=== PATIENT | female | born 1935 | race Caucasian/White ===

== ENCOUNTER 2016-07-21 10:56 | Observation (INO) | payer MEDICARE ==
[2016-07-21] MEDS ORDERED: ONDANSETRON HCL 4 MG/2 ML VIAL ONE ×2 (12:01→13:03)
[2016-07-21] MEDS ORDERED: NORMAL SALINE 1,000 ML IV ONE (12:09)
[2016-07-21] MEDS ORDERED: CIPROFLOXACIN/D5W 400 MG IV ONE (12:09)
[2016-07-21 12:27] LABS: ALBUMIN 3.7 g/dL (3.5-5.0); BILIRUBIN, DIRECT 0.3 mg/dL (0.0-0.4); BILIRUBIN, TOTAL 1.5 mg/dL (0.2-1.3); CALCIUM 9.5 mg/dL (8.4-10.2); POTASSIUM 3.9 mmol/L (3.5-5.1); TOTAL PROTEIN 6.7 g/dL (6.3-8.2)
[2016-07-21 12:28] LABS: BASOPHIL# 0.2 X 10^3uL (0.0-0.1); BASOPHILS 1.6 % (0.0-2.0); EOSINOPHILS 2.2 % (0.0-6.0); EOSINOPHILS# 0.3 X 10^3uL (0.0-0.4); HEMATOCRIT 43.4 % (36.0-48.0); HEMOGLOBIN 14.3 g/dL (12.0-16.0); LYMPHOCYTES 3.9 % (20.0-40.0); LYMPHOCYTES# 0.5 X 10^3uL (0.8-3.8); MEAN CELL VOLUME 87.5 fL (80.0-100.0); MEAN CORPUSCULAR HEMOGLOBIN 28.9 pg (29.0-35.0); MEAN PLATELET VOLUME 9.9 fL (7.4-10.4); MONOCYTES 3.4 % (2.0-10.0); MONOCYTES# 0.5 X 10^3uL (0.2-1.0); NEUTROPHILS 88.9 % (54.0-75.0); NEUTROPHILS# 11.9 X 10^3uL (2.6-6.7); RED BLOOD COUNT 4.96 X 10^6uL (4.20-6.10); RED CELL DISTRIBUTION WIDTH 13.7 % (11.5-14.5); WHITE BLOOD COUNT 13.4 X 10^3uL (3.9-10.7)
[2016-07-21] MEDS ORDERED: ACETAMINOPHEN 325 MG TABLET PO PRN (12:30)
[2016-07-21] MEDS ORDERED: HOME MEDICATION LIST NEEDED 1 EA EACH MC ONE (12:30)
[2016-07-21] MEDS ORDERED: ACETAMINOPHEN 325 MG TABLET PO ONE (12:41)
[2016-07-21] MEDS ORDERED: metroNIDAZOLE/SOD CL 100 ML IV ONE (13:11)
--- NOTE | 2016-07-21 13:48 | ER PHYSICIAN DOCUMENTATION ---
Physician Documentation [facility] Name:Liseth Hyatt Age:80 yrs Sex:Female :1935 Arrival Date:07/21/2016 Time:10:56 Bed1 Private MD:Linh Hannon ED, Chris Disposition: 07/21 12:30 Chart complete. cd Disposition: 07/21/16 12:30 Admit ordered for Linh Hannon. Preliminary diagnosis are Diverticulitis w/o Hemorrhage, Vomiting - Dehydration, Nausea - : Intractable. - Bed requested for Medical/Surgical. - Condition is Fair. - Problem is new. - Symptoms have improved. 23 HR OBS Yes HPI: 11:00 This 80 yrs old Female presents to ER via Private Vehicle with complaints of cd Abdominal Pain. 11:00 The patient presents to the emergency department with nausea, that is moderate, with cd vomiting, a few times, described as clear fluid, with diarrhea, a few times, described as watery, with associated abdominal pain, of the left lower quadrant, described as achy, dull, and does not radiate. Onset: The symptom(s)/episode began/occurred acutely, 2 day(s) ago. Possible causes: flare up of bowel problem, Patient has had Diverticulitis in the past.. Associated signs and symptoms: Pertinent positives: abdominal pain, anorexia, diarrhea, nausea, vomiting, Pertinent negatives: dysuria, fever, GI bleeding. Severity of symptoms: At their worst the symptoms were moderate in the emergency department the symptoms are unchanged. The patient has been recently seen by a physician: the patient's primary care provider, Dr. BLACKMAN, a family practitioner, at a clinic, yesterday, with similar presenting complaints, and apparently given a diagnosis of Acute Diverticulitis, was given a prescription for antibiotics, Patient is unable to hold down PO antibiotics or fluids. Increased pain, but no fever, but the patient's symptoms have worsened. Historical: - Allergies: Lisinopril; losartan; amlodipine; - Home Meds: 1. Flagyl 250 mg oral tab 1 tab 3 times per day 2. Cipro 500 mg oral tab 1 tab every 12 hours 3. calcium-vitamin d 4. anastrozole 1 mg oral tab 1 tab once daily 5. Bystolic 5 mg oral tab 1 tab once daily 6. simvastatin 20 mg oral tab 1 tab every other day 7. multivitamin oral tab daily 8. levothyroxine 112 mcg oral tab 1 tab once daily 9. aspirin 81 mg oral chew 1 tab once daily - PMHx: ductal carcinoma in situ; osteopenia; OSTEOARTHRITIS; colon polyp; venous stasis; HYPERTENSION; macular degeneration; meibomian gland dysfunction; hyperlipidemia; HYPOTHYROIDISM; congenital hemangioma; ductal carcinoma; skin cancer; - PSHx: somnoplasty of palate; lumpectomy; APPENDECTOMY; r arm vascular tumor excision; - Tetanus: < 10 years. - Ebola Screening: : Patient negative for fever greater than or equal to 101.5 degrees Fahrenheit, and additional compatible Ebola Virus Disease symptoms. Patient denies exposure to infectious person. Patient denies travel to an Ebola-affected area in the 21 days before illness onset. . - Immunization history: Pneumococcal vaccine is up to date, Flu Vaccine < 1 year. - Social history: Smoking status: Patient states was never smoker of tobacco. ROS: 11:15 ENT: Negative for injury, pain, epistaxis and discharge. cd Cardiovascular: Negative for chest pain, palpitations, edema and pleuritic pain. Respiratory: Negative for shortness of breath, dyspnea on exertion, cough, sputum production, wheezing, hemoptysis and pleuritic chest pain. Back: Negative for injury, pain or muscle spasms. : Negative for injury, bleeding, discharge, dysuria, frequency, urgency and swelling. Skin: Negative for injury, rash, itching and discoloration. 11:15 Neuro: Negative for headache, weakness, numbness, tingling, and seizure. cd 11:15 Constitutional: Positive for malaise, poor PO intake, Negative for chills, fever. 11:15 Abdomen/GI: Positive for abdominal pain, nausea, vomiting, diarrhea, anorexia, Negative for abdominal distension, hematemesis, black/tarry stool, rectal bleeding. 11:15 All other systems are negative. Exam: 11:20 ENT: Nares patent. No nasal discharge, no septal abnormalities noted. Tympanic cd membranes are normal and external auditory canals are clear. Oropharynx with no redness, swelling, or masses, exudates, or evidence of obstruction, uvula midline. Mucous membranes dry Back: No spinal tenderness. No costovertebral tenderness. Full range of motion. Skin: Warm, dry with normal turgor. Normal color with no rashes, no lesions, and no evidence of cellulitis. MS/ Extremity: Pulses equal, no cyanosis. Neurovascular intact. Full, normal range of motion. 11:20 Neuro: Awake and alert, GCS 15, oriented to person, place, time, and situation. Cranial nerves II-XII grossly intact. Motor strength 5/5 in all extremities. Sensory grossly intact. Cerebellar exam normal. Normal gait. 11:20 Constitutional: The patient appears alert, awake, non-diaphoretic, non-toxic, well developed, well nourished, anxious, obese, in obvious distress, moderately distressed. 11:20 Cardiovascular: Rate: normal, Rhythm: regular, Heart sounds: normal. 11:20 Respiratory: the patient does not display signs of respiratory distress, Respirations: normal, Breath sounds: are normal, clear throughout. 11:20 Abdomen/GI: Inspection: abdomen appears normal, Bowel sounds: diminished, Palpation: mild abdominal tenderness, in the left lower quadrant, Rectal exam: the exam is deferred, Indicators: McBurney's point is not tender, Sykes's sign is negative. Vital Signs: 11:05 BP 99 / 62; Pulse 86; Resp 16; Temp 98.1(O); Pulse Ox 91% on R/A; Weight 68.04 kg; lp Height 4 ft. 10 in. (147.32 cm); Pain 4/10; 12:11 BP 110 / 62; Pulse 74; Resp 16; Pulse Ox 95% on 2 lpm NC; lp 13:27 BP 102 / 60; Pulse 79; Resp 16; Pulse Ox 92% on 2 lpm NC; lp 11:05 Body Mass Index 31.35 (68.04 kg, 147.32 cm) lp MDM: 11:22 Differential diagnosis: diverticulitis, viral gastroenteritis, gastroenteritis, cd Dehydration. 11:56 Patient medically screened. cd 12:00 Data reviewed: vital signs, nurses notes, old medical records, lab test result(s), cd radiologic studies, CT scan, and as a result, I will admit patient. Data interpreted: Pulse oximetry: on room air is 92 %. Interpretation: normal. 12:30 Counseling: I had a detailed discussion with the patient and/or guardian regarding: the cd historical points, exam findings, and any diagnostic results supporting the discharge/admit diagnosis, lab results, radiology results, the need for further work-up and treatment in the hospital. Response to treatment: the patient's symptoms have mildly improved after treatment, and as a result, I will admit patient. Physician consultation: Linh Hannon MD was called at 12:15, was contacted at 12:15, regarding admission, to the floor, consult, patient's condition, need to evaluate the patient as soon as possible, and will see patient in ED, shortly. 07/21 12:36 Order name: BASIC METABOLIC PANEL; Complete Time: 13:39 EDMS 07/21 13:39 Interpretation: Normal Except: SODIUM 130; Hyponatremia. 07/21 12:36 Order name: HEPATIC PANEL; Complete Time: 13:39 EDMS 07/21 13:39 Interpretation: Normal. 07/21 12:36 Order name: LIPASE; Complete Time: 13:39 EDMS 07/21 13:39 Interpretation: Normal. 07/21 12:54 Order name: CBC AUTO DIF, MDIF/RMOR IF IND; Complete Time: 13:39 EDMS 07/21 13:40 Interpretation: Normal Except: WHITE BLOOD COUNT 13.4; NEUTROPHILS 88.9. 07/21 11:50 Order name: Iv Saline Lock; Complete Time: 13:13 cd Dispensed Medications: 11:55 Drug: Zofran 4 mg; Route: IVP; Infused Over: 2 mins; Site: left hand; lp 12:30 Follow up: Response: Nausea is decreased lp 11:56 Drug: NS 0.9% 500 ml; Route: IV; Rate: bolus; Site: left hand; lp 12:11 Follow up: IV Status: Completed infusion; IV Intake: 500ml lp 12:11 Follow up: Response: No adverse reaction; No change in condition lp 12:11 Drug: NS 0.9% 1000 ml; Route: IV; Rate: 100 ml/hr; Site: left hand; lp 13:46 Follow up: Response: No adverse reaction; IV Status: Infusion continued upon admission lp 12:12 Drug: Cipro 400 mg; Route: IVPB; Infused Over: 60 mins; Site: left hand; lp 13:12 Follow up: Response: No adverse reaction; IV Status: Completed infusion lp 12:33 Drug: Acetaminophen 650 mg; Route: PO; lp 13:27 Follow up: Response: Pain is decreased lp 13:15 Drug: Ondansetron 4 mg; Route: IVP; Infused Over: 2 mins; Site: left hand; lp 13:40 Follow up: Response: Nausea unchanged lp 13:27 Drug: metroNIDAZOLE 500 mg; Route: IVPB; Infused Over: 2 hrs; Site: left hand; lp 13:46 Follow up: Response: No adverse reaction; IV Status: Infusion continued upon admission lp 13:39 CANCELLED (Physician Discretion): Phenergan 12.5 mg IM once cd 13:41 Drug: Phenergan 6.25 mg; Route: IVP; Site: left hand; lp 13:46 Follow up: Response: No adverse reaction lp Signatures: Dianelys Mendoza RN RN lp Bolivar Baldwin MD MD cd
--- NOTE | 2016-07-21 13:48 | ER NURSING DOCUMENTATION ---
Nurse's Notes [facility] Name:Liseth Hyatt Age:80 yrs Sex:Female :1935 Arrival Date:07/21/2016 Time:10:56 Bed1 Private MD:Linh Hannon Diagnosis:Diverticulitis w/o Hemorrhage;Vomiting - Dehydration;Nausea-: Intractable Presentation: 07/21 11:01 Acuity: BENNIE 3 lp 11:12 Presenting complaint: Patient states: Complaints of nausea and vomiting with LLQ abd lp pain x 2 days. Transition of care: Home. 11:12 Method Of Arrival: Private Vehicle lp Triage Assessment: 11:24 General: Appears in no apparent distress, Behavior is appropriate for age. Pain: lp Complains of pain in left lower quadrant. GI: Reports lower abdominal pain, intolerance of fluids, intolerance of food, nausea, vomiting. Historical: - Allergies: Lisinopril; losartan; amlodipine; - Home Meds: 1. Flagyl 250 mg oral tab 1 tab 3 times per day 2. Cipro 500 mg oral tab 1 tab every 12 hours 3. calcium-vitamin d 4. anastrozole 1 mg oral tab 1 tab once daily 5. Bystolic 5 mg oral tab 1 tab once daily 6. simvastatin 20 mg oral tab 1 tab every other day 7. multivitamin oral tab daily 8. levothyroxine 112 mcg oral tab 1 tab once daily 9. aspirin 81 mg oral chew 1 tab once daily - PMHx: ductal carcinoma in situ; osteopenia; OSTEOARTHRITIS; colon polyp; venous stasis; HYPERTENSION; macular degeneration; meibomian gland dysfunction; hyperlipidemia; HYPOTHYROIDISM; congenital hemangioma; ductal carcinoma; skin cancer; - PSHx: somnoplasty of palate; lumpectomy; APPENDECTOMY; r arm vascular tumor excision; - Tetanus: < 10 years. - Ebola Screening: : Patient negative for fever greater than or equal to 101.5 degrees Fahrenheit, and additional compatible Ebola Virus Disease symptoms. Patient denies exposure to infectious person. Patient denies travel to an Ebola-affected area in the 21 days before illness onset. . - Immunization history: Pneumococcal vaccine is up to date, Flu Vaccine < 1 year. - Social history: Smoking status: Patient states was never smoker of tobacco. Screenin:27 Infectious Disease Risk None. Abuse screen: Denies threats or abuse. Denies injuries lp from another. Nutritional screening: No deficits noted. Assessment: 11:26 General: Appears in no apparent distress. Pain: Complains of pain in left lower lp quadrant. Neuro: No deficits noted. EENT: No deficits noted. Cardiovascular: Capillary refill < 3 seconds Heart tones S1 S2. Respiratory: Breath sounds are clear bilaterally. GI: Abdomen is non- distended obese, Bowel sounds present X 4 quads. Abdomen is tender to palpation in left lower quadrant Reports intolerance of fluids, intolerance of food, nausea, vomiting. : No deficits noted. Derm: No deficits noted. Musculoskeletal: No deficits noted. Vital Signs: 11:05 BP 99 / 62; Pulse 86; Resp 16; Temp 98.1(O); Pulse Ox 91% on R/A; Weight 68.04 kg; lp Height 4 ft. 10 in. (147.32 cm); Pain 4/10; 12:11 BP 110 / 62; Pulse 74; Resp 16; Pulse Ox 95% on 2 lpm NC; lp 13:27 BP 102 / 60; Pulse 79; Resp 16; Pulse Ox 92% on 2 lpm NC; lp 11:05 Body Mass Index 31.35 (68.04 kg, 147.32 cm) lp ED Course: 10:57 Patient arrived in ED. ds 10:58 Linh Hannon MD is Private Physician. ds 11:00 Dianelys Mendoza, ELENA is Primary Nurse. lp 11:01 Triage completed. lp 11:[address] Baldwin notified. lp 11:27 Valuables Remains with patient Patient has correct armband on for positive lp identification. Placed in gown. Bed in low position. Call light in reach. Side rails up X 1. 11:48 Bolivar Baldwin MD is Attending Physician. cd 11:56 Inserted peripheral IV: 22 gauge in left hand. lp 12:29 Linh Hannon MD is Admitting Physician. cd 12:33 Pulse ox on. NIBP on. lp 13:[address] ms 13:[address] Patient moved back from [address]. ms Administered Medications: 11:55 Drug: Zofran 4 mg; Route: IVP; Infused Over: 2 mins; Site: left hand; lp 12:30 Follow up: Response: Nausea is decreased lp 11:56 Drug: NS 0.9% 500 ml; Route: IV; Rate: bolus; Site: left hand; lp 12:11 Follow up: IV Status: Completed infusion; IV Intake: 500ml lp 12:11 Follow up: Response: No adverse reaction; No change in condition lp 12:11 Drug: NS 0.9% 1000 ml; Route: IV; Rate: 100 ml/hr; Site: left hand; lp 13:46 Follow up: Response: No adverse reaction; IV Status: Infusion continued upon admission lp 12:12 Drug: Cipro 400 mg; Route: IVPB; Infused Over: 60 mins; Site: left hand; lp 13:12 Follow up: Response: No adverse reaction; IV Status: Completed infusion lp 12:33 Drug: Acetaminophen 650 mg; Route: PO; lp 13:27 Follow up: Response: Pain is decreased lp 13:15 Drug: Ondansetron 4 mg; Route: IVP; Infused Over: 2 mins; Site: left hand; lp 13:40 Follow up: Response: Nausea unchanged lp 13:27 Drug: metroNIDAZOLE 500 mg; Route: IVPB; Infused Over: 2 hrs; Site: left hand; lp 13:46 Follow up: Response: No adverse reaction; IV Status: Infusion continued upon admission lp 13:39 CANCELLED (Physician Discretion): Phenergan 12.5 mg IM once cd 13:41 Drug: Phenergan 6.25 mg; Route: IVP; Site: left hand; lp 13:46 Follow up: Response: No adverse reaction lp Intake: 12:11 IV: 500ml; Total: 500ml. lp Outcome: 12:30 Decision to Admit by Provider. cd 12:48 Condition: improved lp 12:48 Instructed on need to admit 13:40 Admitted to Med/surg accompanied by nurse. lp 13:40 Report given to Mckenna Shen RN 13:47 Patient left the ED. lp Signatures: Dianelys Mendoza RN RN lp Galen, Nohelia, Mil Reg Bolivar Dejesus MD MD cd Strickland, Mary ca
--- NOTE | 2016-07-21 14:19 | CT REPORT ---
EXAM:CAT SCAN; ABD/PEL W [id number] INDICATION: Abdominal pain and vomiting, with prior history of diverticulitis. COMPARISON:04/02/2015 TECHNIQUE:Axial images were obtained from the dome of the liver through the bladder after uncomplicat ed intravenous administration of 100 mL Isovue-300. Multiplanar reformations were created. Radiation dose reduction technique was utilized. FINDINGS: There is mild bibasal atelectasis. No pleural or pericardial effusion is demonstrated. The heart size is mildly enlarged. There is mild lower esophageal wall thickening circumferentially. Multiple liver cysts are stable. There is no intrahepatic ductal dilatation and the gallbladder is gr ossly unremarkable. A small round stable simple cystic lesion is present within the medial aspect of the spleen, which is otherwise unremarkable. The pancreas, adrenal glands, and aorta are unremarkable . Mesenteric vessels enhance normally. There are stable bilateral renal hypodensities, with an inferi or right lesion too small to characterize. Hypodensities in the upper and mid anterior aspects of the left kidney are denser than expected for simple cysts. Other left renal hypodensities are consistent with cysts. Sigmoid diverticulosis is present, with wall thickening and inflammatory fat stranding along the uppe r sigmoid colon. No abscess or free air is demonstrated. Remaining bowel loops are unremarkable. The uterus and adnexal regions appear normal. Trace pelvic free fluid may be reactive from diverticulitis or may be physiologic. The bladder is grossly normal. No bony lesions are demonstrated. Degenerative disc disease is severe at L5-S1 and moderate IMPRESSION: 1. Sigmoid diverticulitis, without evidence for perforation or abscess. 2. Multiple stable liver cysts. 3. Stable bilateral renal hypodensities. Some of these are cysts based on density measurements. Other s are denser than simple cysts and are likely collocated by debris or proteinaceous material. 4. Circumferential lower esophageal wall thickening, which may be caused by esophagitis. Final Electronic Signature: This report was electronically signed by Jamel Guillen MD on 07/21/2016 2:17 PM. [email or web address] /
[2016-07-21] MEDS: POTASSIUM CHLORIDE/NS 1,000 ML IV SCH ×2 (15:48→23:36)
[2016-07-21] MEDS ORDERED: ONDANSETRON HCL 4 MG/2 ML VIAL IV PRN (17:11)
[2016-07-21] MEDS ORDERED: NORMAL SALINE MINI-BAG+ 100 ML IV ONE ×2 (18:33→22:53)
[2016-07-21] MEDS: PIPERACILLIN /TAZO 3.375 GM/10 ML VIAL IV SCH (18:41)
[2016-07-21] MEDS: NEBIVOLOL HCL 10 MG TABLET PO SCH (19:59)
--- NOTE | 2016-07-21 20:01 | HISTORY & PHYSICAL ---
DATE OF ADMISSION: 07/21/16 ATTENDING PHYSICIAN: Linh Hannon MD CHIEF COMPLAINT: Abdominal pain, nausea and vomiting. HISTORY OF PRESENT ILLNESS: Patient is a 80-year-old female, with a history of mild intermittent diverticulitis, who had presented to the clinic on Tuesday with nausea, vomiting and abdominal pain and was felt to have a mild diverticulitis. No laboratory studies or imaging was done at that time, as these were symptoms typical for the patient. She was sent home on Ciprofloxacin and Metronidazole, but developed severe vomiting and felt quite unwell and came to the Emergency Room. She did not have any diarrhea. She has not had a documented allergy to Ciprofloxacin but it does seem that it made her worse. She continues to have pain in the left lower quadrant. In the Emergency Room, the patient was found to have a white blood cell count of 13,500 with a left shift, vitals were stable, and CT scan of the abdomen showed diverticulitis in the sigmoid colon with wall thickening and inflammatory fat stranding along the upper sigmoid colon without abscess of free air. She is also noted to have mild lower esophageal wall thickening circumferentially. There are multiple liver cysts which appeared stable. Gallbladder was grossly unremarkable, and there was stable bilateral renal hypodensities, which were felt to be probably cysts. The patient was given antiemetics in the Emergency Room and Ciprofloxacin IV. However, she has continued to feel nauseated. ALLERGIES: Amlodipine, Lisinopril and Losartan. MEDICATIONS AT HOME Aspirin Ecotrin 81 mg p.o. daily Anastrozole 1 mg daily. Bystolic 5 mg daily. Calcium with vitamin D 600 mg twice daily. Ciprofloxacin 500 mg twice daily. Levothyroxine 112 mcg daily. Metronidazole 500 mg 3 times daily. Simvastatin 20 mg every other day. PAST MEDICAL HISTORY 1. 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 She also had an area of atypical ductal hyperplasia in the margins of the pathology. 2. 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 3. Chronic bilateral lower extremity edema. 4. History of colon polyps. 5. 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 6. Hyperlipidemia. 7. Hypertension. 8. History of kidney stones with nephrostomy in 2006. 9. 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 10. Osteoarthritis. 11. Osteopenia. 12. Sleep apnea for which he is using CPAP. SOCIAL HISTORY: She is a nondrinker and never a smoker. 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 FAMILY HISTORY: Father at 66 with prostate cancer, mother at 65 with breast cancer. She had a brother who of an aortic aneurysm in his early 80s and had hypertension. She has a sister who had breast cancer age 56 but is now 72 and doing well. She has a twin brother with hypertension and sleep apnea. REVIEW OF SYSTEMS: She has malaise. Her legs have been twitching and cramping since she was given Phenergen so I have stopped it. She denies any headache or blurred vision. No shortness of breath or chest pain. She has very mild abdominal pain. She continues to be nauseated. She has had no diarrhea. No melena or hematochezia. PHYSICAL EXAMINATION VITAL SIGNS: Temperature 36.6, blood pressure 118/67, pulse 88, respiratory rate 16. O2 saturation 90% on 2 liters. GENERAL: Appears somewhat uncomfortable. HEENT: Extraocular movements are intact. Pupils are equal, round and reactive to light. Sclera are anicteric. Mucosa is moist. NECK: No jugular venous distention. No bruits. No adenopathy. No thyromegaly. LUNGS: Mildly diminished at the bases with a few crackles consistent with atelectasis. CARDIOVASCULAR: Regular rate and rhythm without murmurs, rubs or gallops appreciated. ABDOMEN: Soft, mildly tender in the left lower quadrant. Bowel sounds are quiet. No organomegaly noted. EXTREMITIES: No cyanosis, clubbing or edema. NEUROLOGIC: The patient is oriented. She is a little bit drowsy. Cranial nerves are grossly intact. Motor strength is 5/5. No deep tendon reflexes were elicited. DATA: CBC shows a white count of 13,400 with 89% neutrophils. Hemoglobin 14.3, hematocrit 43.4, platelet count is 142,000. Chemistry is notable for some hyponatremia with a sodium of 130, potassium is normal. BUN is 22, creatinine 1.0. Total bilirubin is mildly elevated at 1.5. Hepatitic enzymes are normal. Protein and albumin are normal. IMAGING: CT scan as noted above. ASSESSMENT AND PLAN 1. Acute sigmoid diverticulitis. Patient is not noted to have severe diverticulitis, although she does tend to have recurrent episodes. Since she is vomiting with Ciprofloxacin and Flagyl, I have changed her drug to Zosyn, would also provide her with April-Q. Zofran is going to be administered for the nausea and vomiting, and I will also order some Pantoprazole given the esophageal findings. 2. Hypertension. Doing well at this time, but will restart her medications. 3. History of sleep apnea. Patient may need to bring in her CPAP for use here. 4. Hypothyroidism. Continue on Levothyroxine. 5. Hyperlipidemia. Will hold her Simvastatin while she is feeling nauseated, as it is nonessential. 6. Code status. Patient is will code and this has been discussed with the patient and documented. 7. Preventive care. Patient is up to date with Tdap in 2016. [place] 2008. Flu vaccination was given 02/04/16. Patient has had both a Pneumovax and a pneumococcal conjugate vaccine and is up to date with all vaccinations. MTDD
[2016-07-22] MEDS: PIPERACILLIN /TAZO 3.375 GM/10 ML VIAL IV SCH ×3 (00:11→12:09)
[2016-07-22] MEDS ORDERED: NORMAL SALINE MINI-BAG+ 100 ML IV ONE ×2 (05:49→12:08)
[2016-07-22] MEDS: LEVOTHYROXINE 112 MCG TABLET PO SCH (05:54)
[2016-07-22 06:21] LABS: BILIRUBIN, DIRECT 0.2 mg/dL (0.0-0.4); BILIRUBIN, TOTAL 0.9 mg/dL (0.2-1.3); TOTAL PROTEIN 5.9 g/dL (6.3-8.2)
[2016-07-22 06:50] LABS: BASOPHIL# 0.2 X 10^3uL (0.0-0.1); EOSINOPHILS 5.9 % (0.0-6.0); EOSINOPHILS# 0.6 X 10^3uL (0.0-0.4); HEMATOCRIT 41.5 % (36.0-48.0); HEMOGLOBIN 14.1 g/dL (12.0-16.0); LYMPHOCYTES 2.6 % (20.0-40.0); LYMPHOCYTES# 0.3 X 10^3uL (0.8-3.8); MEAN CELL VOLUME 88.1 fL (80.0-100.0); MEAN CORPUSCULAR HEMOGLOBIN 29.9 pg (29.0-35.0); MEAN PLATELET VOLUME 9.5 fL (7.4-10.4); MONOCYTES 3.2 % (2.0-10.0); MONOCYTES# 0.3 X 10^3uL (0.2-1.0); NEUTROPHILS 86.3 % (54.0-75.0); NEUTROPHILS# 8.8 X 10^3uL (2.6-6.7); RED BLOOD COUNT 4.71 X 10^6uL (4.20-6.10); RED CELL DISTRIBUTION WIDTH 13.9 % (11.5-14.5); WHITE BLOOD COUNT 10.2 X 10^3uL (3.9-10.7)
[2016-07-22 07:26] LABS: CALCIUM 8.8 mg/dL (8.4-10.2); POTASSIUM 4.2 mmol/L (3.5-5.1)
--- NOTE | 2016-07-22 07:56 | PROGRESS NOTE: IM APSO ---
Assessment and Plan - Date of Encounter Date of Encounter: 07/22/16 (1) Diverticulitis large intestine Status: Acute Assessment and plan: WBC has normalized, patient's tenderness and nausea are improved. She is hypotensive, so I will keep her in the hospital today, and continue IVF, advance diet and monitor. Hopefully will be able to discharge home tomorrow if doing better. Current Visit: Yes (2) Hypertension Status: Chronic Assessment and plan: Patient is hypotensive this morning, so will need to hold her Bystolic until blood pressure improves. Current Visit: Yes (3) Hypothyroidism (acquired) Status: Chronic Assessment and plan: Continue medications as at home. Current Visit: Yes - Time Spent With Patient Total time spent with greater than 50% in coordination of care (as documented) at patient's floor/unit and/or counseling patient: IM: PN Subjective Interval history: Patient is fatigued, no appetite. She had a large, loose bowel movement this morning with some incontinence. Her blood pressure is low, which may be because her left hand IV infiltrated. She now has an IV in the other hand. Pain is improved, nausea is resolved. General: fatigue, malaise, no fever, no chills HEENT: no headache Cardiovascular: no chest pain Respiratory: no SOB Gastrointestinal: diarrhea, no abdominal pain, no nausea, no vomiting Musculoskeletal: no pain IM: PN Objective Exam - I&O/Vital Signs I&O: Intake & Output 07/21/16 07/22/16 07/22/16 21:59 05:59 13:59 Intake Total 1425 Output Total 150 Balance 1275 Weight 68.039 kg Intake: IV 1425 Left Hand 1425 Output: Urine 150 Other: Urine Appearance Clear Clear Urine Color Yellow Yellow Stool Size Moderate Stool Characteristics Liquid Liquid Brown Brown Voiding Method Toilet Toilet Vital Signs: Last Vital Signs Temp 37.6 C H 07/22/16 07:00 Pulse 83 07/22/16 07:00 Resp 16 07/22/16 07:00 BP 98/63 07/22/16 07:00 Pulse Ox 92 07/22/16 07:00 Oxygen Flow Rate 1.5 Oxygen Delivery Method Nasal Cannula - Constitutional General appearance: Present: average body habitus - Head Head exam: Present: normal inspection - Eye Eye exam: Absent: conjunctival injection Pupils: Present: PERRL - ENT ENT exam: Present: mucous membranes moist - Neck Neck exam: Present: normal inspection - Respiratory Respiratory exam: Present: CTAB - Cardiovascular Cardiovascular exam: Present: RRR, systolic murmur - GI/Abdominal GI/Abdominal exam: Present: diminished bowel sounds, soft. Absent: tenderness - Extremities Exam Extremities exam: Absent: calf tenderness, edema - Neurological Exam Neurological exam: Present: CN II-XII intact - Psychiatric Psychiatric exam: Present: normal mood - Lab Labs: Laboratory Last Values WBC 10.2 X 10^3uL (3.9-10.7) 07/22/16 05:00 RBC 4.71 X 10^6uL (4.20-6.10) 07/22/16 05:00 Hgb 14.1 g/dL (12.0-16.0) 07/22/16 05:00 Hct 41.5 % (36.0-48.0) 07/22/16 05:00 MCV 88.1 fL (80.0-100.0) 07/22/16 05:00 MCH 29.9 pg (29.0-35.0) 07/22/16 05:00 MCHC 34.0 g/dL (32.0-36.0) 07/22/16 05:00 RDW 13.9 % (11.5-14.5) 07/22/16 05:00 Plt Count 141 X 10^3uL (130-440) 07/22/16 05:00 MPV 9.5 fL (7.4-10.4) 07/22/16 05:00 Neutrophils % 86.3 % (54.0-75.0) H 07/22/16 05:00 Lymphocytes % 2.6 % (20.0-40.0) L 07/22/16 05:00 Eosinophils % 5.9 % (0.0-6.0) 07/22/16 05:00 Basophils % 2.0 % (0.0-2.0) 07/22/16 05:00 Neutrophils # 8.8 X 10^3uL (2.6-6.7) H 07/22/16 05:00 Lymphocytes # 0.3 X 10^3uL (0.8-3.8) L 07/22/16 05:00 Monocytes 3.2 % (2.0-10.0) 07/22/16 05:00 Monocytes # 0.3 X 10^3uL (0.2-1.0) 07/22/16 05:00 Eosinophils # 0.6 X 10^3uL (0.0-0.4) H 07/22/16 05:00 Basophils # 0.2 X 10^3uL (0.0-0.1) H 07/22/16 05:00 Sodium 136 mmol/L (137-145) L 07/22/16 05:22 Potassium 4.2 mmol/L (3.5-5.1) 07/22/16 05:22 Chloride 109 mmol/L (98-107) H 07/22/16 05:22 Carbon Dioxide 21 mmol/L (22-30) L 07/22/16 05:22 BUN 18 mg/dL (7-17) H 07/22/16 05:22 Creatinine 1.0 mg/dL (0.5-1.0) 07/22/16 05:22 GFR Calculation 57 mL/min 07/22/16 05:22 Glucose 98 mg/dL (70-100) 07/22/16 05:22 Calcium 8.8 mg/dL (8.4-10.2) 07/22/16 05:22 Total Bilirubin 0.9 mg/dL (0.2-1.3) 07/22/16 05:00 Direct Bilirubin 0.2 mg/dL (0.0-0.4) 07/22/16 05:00 AST 16 U/L (14-36) 07/22/16 05:00 ALT 30 U/L (9-52) 07/22/16 05:00 Alkaline Phosphatase 63 U/L (38-126) 07/22/16 05:00 Total Protein 5.9 g/dL (6.3-8.2) L 07/22/16 05:00 Albumin 3.0 g/dL (3.5-5.0) L 07/22/16 05:00 Lipase 28 U/L (23-300) 07/21/16 11:40 Quality Questions - VTE Prophylaxis Assessment VTE Present on Admission?: No Patient at risk for venous thromboembolism?: Yes VTE Risk Level: High Risk VTE Medical Contraindication: N/A-VTE Prophylaxis ordered (1) Diverticulitis large intestine Qualifiers: Diverticulitis bleeding: without bleeding Diverticulitis complication: without perforation or abscess Qualified Code(s): K57.32 - Diverticulitis of large intestine without perforation or abscess without bleeding (2) Hypertension Qualifiers: Hypertension type: essential hypertension Qualified Code(s): I10 - Essential (primary) hypertension
[2016-07-22] MEDS: NEBIVOLOL HCL 10 MG TABLET PO SCH (08:47)
[2016-07-22] MEDS: ANASTROZOLE 1 MG PO SCH (08:51)
[2016-07-22] MEDS: PROBIOTIC 1 CAP CAPSULE PO SCH (09:02)
[2016-07-22] MEDS: ENOXAPARIN SODIUM 40 MG/0.4 ML SYR SUBCUT SCH (09:02)
[2016-07-22] MEDS: POTASSIUM CHLORIDE/NS 1,000 ML IV SCH (09:21)
[2016-07-22] MEDS ORDERED: POTASSIUM CHLORIDE/NS 1,000 ML IV SCH (18:00)
[2016-07-22] MEDS: IMIPENEM IV SCH ×2 (18:03→23:25)
[2016-07-22] MEDS: CILASTATIN IV SCH ×2 (18:03→23:25)
[2016-07-22] MEDS: NORMAL SALINE IV SCH ×2 (18:03→23:25)
[2016-07-22 23:53] VITALS: RESP 16
[2016-07-23] MEDS: NORMAL SALINE IV SCH (05:48)
[2016-07-23] MEDS: CILASTATIN IV SCH (05:48)
[2016-07-23] MEDS: IMIPENEM IV SCH (05:48)
[2016-07-23] MEDS: LEVOTHYROXINE 112 MCG TABLET PO SCH (05:49)
[2016-07-23 06:37] LABS: BLOOD UREA NITROGEN 11 mg/dL (7-17); CALCIUM 8.6 mg/dL (8.4-10.2); CHLORIDE 112 mmol/L (98-107); CREATININE 0.7 mg/dL (0.5-1.0); EST GLOMERULAR FILTRATION RATE > 60 mL/min; GLUCOSE 87 mg/dL (70-100); POTASSIUM 4.1 mmol/L (3.5-5.1); SODIUM 137 mmol/L (137-145)
[2016-07-23 06:41] LABS: BASOPHILS 0.4 % (0.0-2.0); EOSINOPHILS 10.5 % (0.0-6.0); EOSINOPHILS# 0.6 X 10^3uL (0.0-0.4); HEMOGLOBIN 13.1 g/dL (12.0-16.0); LYMPHOCYTES 7.9 % (20.0-40.0); LYMPHOCYTES# 0.5 X 10^3uL (0.8-3.8); MEAN CELL VOLUME 88.8 fL (80.0-100.0); MEAN CORPUSCULAR HEMOGLOBIN 28.5 pg (29.0-35.0); MEAN PLATELET VOLUME 9.6 fL (7.4-10.4); MONOCYTES 4.4 % (2.0-10.0); MONOCYTES# 0.3 X 10^3uL (0.2-1.0); NEUTROPHILS 76.8 % (54.0-75.0); NEUTROPHILS# 4.5 X 10^3uL (2.6-6.7); PLATELET COUNT 132 X 10^3uL (130-440); RED BLOOD COUNT 4.61 X 10^6uL (4.20-6.10); WHITE BLOOD COUNT 5.9 X 10^3uL (3.9-10.7)
[2016-07-23 07:00] VITALS: BP 124/68; PULSE 56; TEMP 96.8; O2SAT 94
[2016-07-23] MEDS: ANASTROZOLE 1 MG PO SCH ×2 (08:06→09:01)
--- NOTE | 2016-07-23 08:12 | DC SUMMARY: IM Note ---
Discharge Summary: IM/Peds Provider: Date of Admission: 07/21/16 Admitting Provider: JACI BROWN MD Attending Provider: JACI BROWN MD Discharging Provider: JACI BORWN MD Primary Care Provider: Discharge Date: 07/23/16 - Diagnosis (1) Diverticulitis large intestine Status: Acute Qualifiers: Diverticulitis bleeding: without bleeding Diverticulitis complication: without perforation or abscess Qualified Code(s): K57.32 - Diverticulitis of large intestine without perforation or abscess without bleeding (2) Hypertension Status: Chronic Qualifiers: Hypertension type: essential hypertension Qualified Code(s): I10 - Essential (primary) hypertension (3) Hypothyroidism (acquired) Status: Chronic Hospital Course: 1. Patient was admitted with sigmoid diverticulitis without perforation or abscess per CT with IV contrast. She had been started on Cipro and Flagyl as an outpatient, but developed intractable nausea and vomiting, which is presumptively due to the Ciprofloxacin. This was discontinued, and the patient was started on Zosyn, but almost immediately developed severe diarrhea with incontinence. At this point, the patient was switched to Primaxin at renal dosing, which she tolerated well. On the day of discharge patient had no pain, a normal WBC, and her diarrhea had stopped. She was discharged on Bactrim and Flagyl at lower doses. 2. Hypertension. Patient's blood pressure remained well controlled without medication, due to her dehydration. She will resume her low dose Bystolic at home. - Time Spent with Patient Total time spent providing and/or coordinating discharge services: Time with patient DS: Greater than 30 minutes Discharge - Patient/Caregiver Discharge Instructions Activity Level: As tolerated Diet: Gradually reintroduce normal diet. Avoid excessive dairy, citrus, caffeine, raw fruits and vegetables until bowel movements are normal. Follow up: JACI BROWN MD [Primary Care Provider] - 10 Days Overall discharge status: patient is progressing back to baseline Home Medications: L. Acidophilus/Pectin, [place] [Acidophilus Probiotic Capsule] 2 each PO TID # 100 capsule Sulfamethoxazole/Trimethoprim [Bactrim 400-80 mg Tablet] 1 tab PO BID #14 tab RX: metroNIDAZOLE [Flagyl*] 250 mg PO TID #21 tablet Disposition: HOME, SELF-CARE 1. Medical reason for no anticoagulation order on D/C?: Treatment not indicated 2. Medical reason for no anticoag overlap on D/C?: Treatment not indicated Discharge Summary Data - Medication History Medication History: Home Medications Anastrozole 1 mg PO DAILY 07/21/16 Calcium Carbonate/Vitamin D3 [Calcium 600 + Vit D 400 Tablet] 1 tab PO DAILY 06/08 Ciprofloxacin HCl [Cipro*] 500 mg PO BID 07/21/16 Levothyroxine [Synthroid*] 112 mcg PO DAILY 07/21/16 Multivitamins,Therapeutic [Thera Multivitamin*] 1 tab PO DAILY 07/21/16 Nebivolol HCl [Bystolic] 5 mg PO HS 07/21/16 Simvastatin [Simvastatin*] 20 mg PO HS 07/21/16 aspirin EC [Aspirin EC*] 81 mg PO DAILY 07/21/16 metroNIDAZOLE [Flagyl*] 500 mg PO TID 07/21/16 Inpatient Medications 07/21/16 17:11 Ondansetron HCl [Zofran] 4 mg IV Q6H PRN 07/21/16 18:00 Nebivolol HCl [Bystolic] 5 mg PO DAILY 07/22/16 06:30 Levothyroxine [Synthroid] 112 mcg PO BEFORE BREAKFAST 07/22/16 09:00 Anastrozole [Anastrozole] 1 mg PO DAILY Probiotic [April-Q Capsule] 1 cap PO DAILY aspirin EC [Ecotrin 81 mg] 81 mg PO DAILY 07/22/16 18:00 Imipenem/Cilastatin [Primaxin] 250 mg Normal Saline [Sodium Chloride 0.9% 100 ml] 100 ml IV Q6H Potassium Chloride/Ns [KCl 20 Meq in Ns 1L] 1,000 ml IV CONT Procedures and tests throughout hospitalization: Completed Lab Orders 07/22/16 05:22 BMP [BASIC METABOLIC PANEL] [CHEM] Routine 07/23/16 05:55 BASIC METABOLIC PANEL [CHEM] AMDRAW CBC AUTO DIF, MDIF/RMOR IF IND [HEM] AMDRAW Pending Orders 07/21/16 17:11 Ondansetron HCl [Zofran] 4 mg IV Q6H PRN 07/21/16 17:36 Miscellaneous Care Order . 07/21/16 18:00 Nebivolol HCl [Bystolic] 5 mg PO DAILY 07/22/16 06:30 Levothyroxine [Synthroid] 112 mcg PO BEFORE BREAKFAST 07/22/16 07:15 Advance diet as tolerated . 07/22/16 07:58 Miscellaneous Care Order . 07/22/16 09:00 Anastrozole [Anastrozole] 1 mg PO DAILY Probiotic [April-Q Capsule] 1 cap PO DAILY aspirin EC [Ecotrin 81 mg] 81 mg PO DAILY 07/22/16 18:00 Imipenem/Cilastatin [Primaxin] 250 mg Normal Saline [Sodium Chloride 0.9% 100 ml] 100 ml IV Q6H Potassium Chloride/Ns [KCl 20 Meq in Ns 1L] 1,000 ml IV CONT 07/22/16 Breakfast BRAT [DIET] Labs on day of discharge: Labs from last 24 hours 07/23/16 05:55 WBC 5.9 RBC 4.61 Hgb 13.1 Hct 41.0 MCV 88.8 MCH 28.5 L MCHC 32.0 RDW 14.0 Plt Count 132 MPV 9.6 Neutrophils % 76.8 H Lymphocytes % 7.9 L Eosinophils % 10.5 H Basophils % 0.4 Neutrophils # 4.5 Lymphocytes # 0.5 L Monocytes 4.4 Monocytes # 0.3 Eosinophils # 0.6 H Basophils # 0.0 Sodium 137 Potassium 4.1 Chloride 112 H Carbon Dioxide 21 L BUN 11 Creatinine 0.7 GFR Calculation > 60 Glucose 87 Calcium 8.6 IM: Discharge Physical Exam - I&O/Vital Signs I&O: Intake & Output 07/22/16 07/23/16 07/23/16 21:59 05:59 13:59 Intake Total 1895 1593 Output Total 900 650 Balance 995 943 Intake: IV 1445 993 Right Forearm 1445 993 Oral 450 600 Output: Urine 900 650 Other: Urine Appearance Clear Clear Urine Color Yellow Yellow Voiding Method Toilet Toilet # Voids 3 # Bowel Movements 5 Vital Signs: Last Vital Signs Temp 36.0 C L 07/23/16 06:05 Pulse 56 L 07/23/16 06:05 Resp 16 07/23/16 06:05 BP 124/68 07/23/16 06:05 Pulse Ox 94 07/23/16 06:05 Oxygen Flow Rate 2 Oxygen Delivery Method Nasal Cannula - Constitutional General appearance: Present: average body habitus - Head Head exam: Present: normal inspection - Eye Eye exam: Absent: conjunctival injection Pupils: Present: PERRL - ENT ENT exam: Present: mucous membranes moist - Neck Neck exam: Present: normal inspection - Respiratory Respiratory exam: Present: CTAB - Cardiovascular Cardiovascular exam: Present: RRR, systolic murmur - GI/Abdominal GI/Abdominal exam: Present: hyperactive bowel sounds, soft. Absent: tenderness - Extremities Exam Extremities exam: Absent: calf tenderness, edema - Neurological Exam Neurological exam: Present: CN II-XII intact - Psychiatric Psychiatric exam: Present: normal mood - Allied Health Notes Allied health notes reviewed: nursing
[2016-07-23] MEDS: ENOXAPARIN SODIUM 40 MG/0.4 ML SYR SUBCUT SCH (08:49)
[2016-07-23] MEDS: NEBIVOLOL HCL 10 MG TABLET PO SCH ×2 (08:50→08:54)
[2016-07-23] MEDS: PROBIOTIC 1 CAP CAPSULE PO SCH (08:53)
== END 2016-07-23 08:15 | disposition home or self-care (01) ==
LOC: ER 10:56 → IN 13:39
PROVIDERS: ADMIT Internal Medicine; ATTEND Internal Medicine
DX: K57.32 Diverticulitis of large intestine without perforation or abscess without bleeding (principal); I10 Essential (primary) hypertension; E03.9 Hypothyroidism, unspecified; E78.5 Hyperlipidemia, unspecified; C50.811 Malignant neoplasm of overlapping sites of right female breast; Z86.010 Personal history of colon polyps; M85.89 Other specified disorders of bone density and structure, multiple sites; G47.39 Other sleep apnea; Z79.899 Other long term (current) drug therapy
CPT/HCPCS: 36415; 74177; 80048; 80076; 83690; 85025; 96361; 96365; 96366; 96367; 96372; 96375; 96376; 99285; G0378; J0743; J0744; J1650; J2405; J2543; J2550; J3480; J7030

== ENCOUNTER 2016-07-23 22:54 | Emergency (ER) | payer MEDICARE ==
[2016-07-23 23:40] LABS: URINE MUCUS NONE SEEN (Up to 25%); URINE RBC NONE SEEN (0-5/hpf); URINE SQUAMOUS EPITHELIAL CELL NONE SEEN (<= 15/hpf)
[2016-07-23 23:44] LABS: BASOPHIL# 0.2 X 10^3uL (0.0-0.1); BASOPHILS 2.2 % (0.0-2.0); EOSINOPHILS 8.1 % (0.0-6.0); EOSINOPHILS# 0.6 X 10^3uL (0.0-0.4); HEMATOCRIT 43.2 % (36.0-48.0); HEMOGLOBIN 14.4 g/dL (12.0-16.0); LYMPHOCYTES 9.3 % (20.0-40.0); LYMPHOCYTES# 0.6 X 10^3uL (0.8-3.8); MEAN CELL VOLUME 87.8 fL (80.0-100.0); MEAN CORPUS. HGB CONCENTRATION 33.4 g/dL (32.0-36.0); MEAN CORPUSCULAR HEMOGLOBIN 29.3 pg (29.0-35.0); MEAN PLATELET VOLUME 9.2 fL (7.4-10.4); MONOCYTES 6.9 % (2.0-10.0); MONOCYTES# 0.5 X 10^3uL (0.2-1.0); NEUTROPHILS 73.5 % (54.0-75.0); NEUTROPHILS# 4.9 X 10^3uL (2.6-6.7); RED BLOOD COUNT 4.93 X 10^6uL (4.20-6.10); WHITE BLOOD COUNT 6.8 X 10^3uL (3.9-10.7)
[2016-07-23 23:58] LABS: ALBUMIN 3.3 g/dL (3.5-5.0); BILIRUBIN, DIRECT 0.1 mg/dL (0.0-0.4); BILIRUBIN, TOTAL 0.5 mg/dL (0.2-1.3); CREATININE 0.7 mg/dL (0.5-1.0); POTASSIUM 3.7 mmol/L (3.5-5.1); TOTAL PROTEIN 6.2 g/dL (6.3-8.2)
[2016-07-24 00:07] LABS: URINE APPEARANCE CLEAR; URINE BACTERIA NONE SEEN (<10/hpf); URINE BILIRUBIN NEGATIVE (NEGATIVE); URINE BLOOD TRACE (NEGATIVE); URINE COLOR PALE YELLOW; URINE GLUCOSE NORMAL (NEGATIVE); URINE KETONE NEGATIVE (NEGATIVE); URINE LEUKOCYTE ESTERASE NEGATIVE (NEGATIVE); URINE NITRITE NEGATIVE (NEGATIVE); URINE PROTEIN NEGATIVE (NEG - TRACE); URINE SPECIFIC GRAVITY < or = 1.005 (0.001-1.035); URINE UROBILINOGEN 0.2mg/dL (Normal) (NEG-1mg/dL); URINE WBC 0-4/hpf (0-4/hpf)
--- NOTE | 2016-07-24 01:01 | CT REPORT ---
INDICATION: Chest pain. COMPARISON: None. TECHNIQUE: This examination was performed using automated exposure control, adjustment of mA or kV ac cording to patient size, and/or use of iterative reconstruction technique. Helical axial images were obtained through the chest after intravenous administration of iodinated contrast. FINDINGS: There are small bilateral pleural effusions. There is groundglass airspace attenuation scat tered throughout both lungs. There is no lobar consolidation or pneumothorax. Heart is normal size. The great vessels are normal size. There is no evidence of aortic dissection or rupture. The pulmonary arteries are well opacified. There is no evidence of pulmonary embolism. There are several borderline-enlarged mediastinal lymph nodes, nonspecific. There is no gross hilar l ymphadenopathy. The trachea and esophagus are unremarkable. Multiple hepatic cysts are again seen. IMPRESSION: 1. No aortic dissection. No pulmonary embolism. 2. Small bilateral pleural effusions. 3. Groundglass airspace attenuation is scattered throughout both lungs, nonspecific. This could be re lated to mild pulmonary edema or an infectious or inflammatory process. 4. Several borderline-enlarged mediastinal lymph nodes are present, nonspecific. Final Electronic Signature: This report was electronically signed by Tim Chris MD on 07/24/2016 12 :59 AM. [email or web address] /
--- NOTE | 2016-07-24 01:32 | ER NURSING DOCUMENTATION ---
Nurse's Notes [facility] Name:Liseth Hyatt Age:80 yrs Sex:Female :1935 Arrival Date:07/23/2016 Time:22:54 Bed4 Private MD:Linh Hannon Diagnosis:Acute Back Pain Presentation: 07/23 22:55 Acuity: BENNIE 2 lpr 22:58 Presenting complaint: Patient states: recently admitted for diverticulitis, discharged lpr this am. Now c/o right flank pain and continued black stools. Transition of care: patient was not received from another setting of care. Risk considerations: patient denies associated abdominal pain and neurologic symptoms. 22:58 Method Of Arrival: Walk In lpr 23:02 Notified ED Physician of patient's arrival and CC Dr. Hastings notified. lpr Triage Assessment: 23:24 General: Appears in no apparent distress, Behavior is cooperative. Pain: Complains of lpr pain in right flank. EENT: Oral mucosa is moist. Neuro: Level of Consciousness is awake, alert, obeys commands, Oriented to person, place, time, event. Cardiovascular: Chest pain is denied. Respiratory: Airway is patent Respiratory effort is even, unlabored, Respiratory pattern is regular, symmetrical. GI: Reports diarrhea, dark tarry stools. : No deficits noted. Derm: Skin is intact, is healthy with good turgor, Skin is pink, warm & dry. Musculoskeletal: Circulation, motion, and sensation intact Capillary refill < 3 seconds Range of motion intact in all extremities. Reports pain in right flank. Historical: - Allergies: Lisinopril; losartan; amlodipine; - Home Meds: 1. calcium-vitamin d 2. simvastatin 20 mg oral tab 1 tab every other day 3. levothyroxine 112 mcg oral tab 1 tab once daily 4. anastrozole 1 mg oral tab 1 tab once daily 5. aspirin 81 mg oral chew 1 tab once daily 6. multivitamin oral tab daily 7. Flagyl 250 mg oral tab 1 tab 3 times per day 8. Bactrim DS Oral 1 tab 2 times per day 9. Bystolic 5 mg oral tab 1 tab once daily - PMHx: ductal carcinoma in situ; osteopenia; OSTEOARTHRITIS; colon polyp; venous stasis; HYPERTENSION; macular degeneration; meibomian gland dysfunction; hyperlipidemia; HYPOTHYROIDISM; congenital hemangioma; ductal carcinoma; skin cancer; - PSHx: somnoplasty of palate; LUMPECTOMY; APPENDECTOMY; r arm vascular tumor excision; - Tetanus: < 10 years. - Ebola Screening: : No symptoms or risks identified at this time. . - Immunization history: Pneumococcal vaccine is up to date, Flu Vaccine < 1 year. - Social history: Smoking status: Patient states was never smoker of tobacco. Screenin:26 Infectious Disease Risk None. Abuse screen: Denies threats or abuse. Nutritional lpr screening: No deficits noted. Assessment: 23:26 Neuro: Level of Consciousness is awake, alert, obeys commands, Oriented to person, lpr place, time, event. Vital Signs: 23:00 BP 141 / 80; Pulse 69; Resp 15; Temp 97.8(O); Pulse Ox 91% on R/A; Weight 68.04 kg (R); lpr Height 4 ft. 10 in. (147.32 cm) (R); Pain 3/10; 23:00 Body Mass Index 31.35 (68.04 kg, 147.32 cm) lpr ED Course: 22:55 Patient arrived in ED. ma1 22:55 Linh Hannon MD is Private Physician. ma1 22:55 Triage completed. lpr 23:25 Ahmet Hastings MD is Attending Physician. ms 23:26 Valuables Remains with patient Patient has correct armband on for positive lpr identification. Placed in gown. Bed in low position. Call light in reach. Side rails up X 1. 23:35 Inserted saline lock: 20 gauge in left forearm and blood collected. lpr 03 00:[address] hz 00:[address]. hz 01:24 Linh Hannon MD is Referral Physician. ms Administered Medications: No medications were administered Outcome: :25 Discharge ordered by . ms 01:27 Discharged to home ambulatory, with significant other. 01:27 Condition: stable 01:27 Discharge Assessment: Patient awake, alert and oriented x 3. No cognitive and/or functional deficits noted. Patient verbalized understanding of disposition instructions. 01:27 Discharge instructions given to patient, family, Instructed on discharge instructions, follow up and referral plans. Demonstrated understanding of instructions. 01:27 IV D/Alvarez 01:32 Patient left the ED. rh Signatures: Ahmet Hastings MD MD sc Mandy Smith RN RN lpr Marlyn Quiñones Heather hz Addison, Melissa ma1
--- NOTE | 2016-07-24 01:32 | ER PHYSICIAN DOCUMENTATION ---
Physician Documentation [facility] Name:Liseth Hyatt Age:80 yrs Sex:Female :1935 Arrival Date:07/23/2016 Time:22:54 Bed4 Private MD:Linh Hannon ED, Scott Disposition: 07/24/16 01:25 Discharged to Home/Self Care. Impression: Acute Back Pain. - Condition is Good. - Discharge Instructions: BACK PAIN (Acute or Chronic). - Medical Reconciliation form form. - Follow up: Linh Hannon MD; When: Tomorrow; Reason: Recheck today's complaints, Continuance of care. - Problem is new. - Symptoms are unchanged. HPI: 07/23 23:47 This 80 yrs old Female presents to ER via Walk In with complaints of Back sc Pain, Black/Tarry Stools. 23:47 The patient presents with pain that is acute, with no known mechanism of injury. The sc symptoms are located in the left mid back. Onset: The symptoms/episode began/occurred at 03:00. The pain does not radiate. Associated signs and symptoms: Pertinent positives: weakness, black stool x 2-3 days in hospital, alondra new abx now, no vomiting, taking po fine. The problem was sustained at the hospital, from unknown cause. Severity of symptoms: At their worst the symptoms were moderate. Historical: - Allergies: Lisinopril; losartan; amlodipine; - Home Meds: 1. calcium-vitamin d 2. simvastatin 20 mg oral tab 1 tab every other day 3. levothyroxine 112 mcg oral tab 1 tab once daily 4. anastrozole 1 mg oral tab 1 tab once daily 5. aspirin 81 mg oral chew 1 tab once daily 6. multivitamin oral tab daily 7. Flagyl 250 mg oral tab 1 tab 3 times per day 8. Bactrim DS Oral 1 tab 2 times per day 9. Bystolic 5 mg oral tab 1 tab once daily - PMHx: ductal carcinoma in situ; osteopenia; OSTEOARTHRITIS; colon polyp; venous stasis; HYPERTENSION; macular degeneration; meibomian gland dysfunction; hyperlipidemia; HYPOTHYROIDISM; congenital hemangioma; ductal carcinoma; skin cancer; - PSHx: somnoplasty of palate; LUMPECTOMY; APPENDECTOMY; r arm vascular tumor excision; - Tetanus: < 10 years. - Ebola Screening: : No symptoms or risks identified at this time. . - Immunization history: Pneumococcal vaccine is up to date, Flu Vaccine < 1 year. - Social history: Smoking status: Patient states was never smoker of tobacco. ROS: 23:49 Constitutional: Negative for fever, chills, and weight loss. sc Eyes: Negative for injury, pain, redness, and discharge. ENT: Negative for injury, pain, and discharge. Neck: Negative for injury, pain, and swelling. Cardiovascular: Negative for chest pain, palpitations, and edema. Respiratory: Negative for shortness of breath, cough, wheezing, and pleuritic chest pain. : Negative for injury, bleeding, discharge, and swelling. MS/Extremity: Negative for injury and deformity. Skin: Negative for injury, rash, and discoloration. 23:49 Neuro: Negative for headache, weakness, numbness, tingling, and seizure. sc 23:49 Abdomen/GI: Positive for black/tarry stool, Negative for abdominal pain, nausea, vomiting, diarrhea, constipation, abdominal cramps. 23:49 Back: Positive for pain at rest, Negative for decreased range of motion, pain with movement, radiated pain. Exam: Constitutional: This is a well developed, well nourished patient who is awake, alert, and in no acute distress. Head/Face: Normocephalic, atraumatic. Eyes: Pupils equal round and reactive to light, extra-ocular motions intact. Lids and lashes normal. Conjunctiva and sclera are non-icteric and not injected. Cornea within normal limits. Periorbital areas with no swelling, redness, or edema. ENT: Nares patent. No nasal discharge, no septal abnormalities noted. Tympanic membranes are normal and external auditory canals are clear. Oropharynx with no redness, swelling, or masses, exudates, or evidence of obstruction, uvula midline. Mucous membranes moist. Neck: Trachea midline, no thyromegaly or masses palpated, and no cervical lymphadenopathy. Supple, full range of motion without nuchal rigidity, or vertebral point tenderness. No meningismus. Chest/axilla: Normal chest wall appearance and motion. Nontender with no deformity. No lesions are appreciated. Cardiovascular: Regular rate and rhythm with a normal S1 and S2. No gallops, murmurs, or rubs. Normal PMI, no JVD. No pulse deficits. Respiratory: Lungs have equal breath sounds bilaterally, clear to auscultation and percussion. No rales, rhonchi or wheezes noted. No increased work of breathing, no retractions or nasal flaring. Abdomen/GI: Soft, non-tender, with normal bowel sounds. No distension or tympany. No guarding or rebound. No evidence of tenderness throughout. Skin: Warm, dry with normal turgor. Normal color with no rashes, no lesions, and no evidence of cellulitis. MS/ Extremity: Pulses equal, no cyanosis. Neurovascular intact. Full, normal range of motion, negative Homans's, calves equal bilaterally. 23:50 Neuro: Awake and alert, GCS 15, oriented to person, place, time, and situation. dc Cranial nerves II-XII grossly intact. Motor strength 5/5 in all extremities. Sensory grossly intact. Cerebellar exam normal. Normal gait. 23:50 Back: pain, that is mild, ROM is normal, normal spinal alignment noted, CVA tenderness, is absent, vertebral tenderness, is not appreciated, muscle spasm, is not present, but tender lower right ribs and paraspinal area. 07/24 01:25 Neuro: Sensation: is normal, Gait: is steady, Deep tendon reflexes are normal. dc Vital Signs: 07/23 23:00 BP 141 / 80; Pulse 69; Resp 15; Temp 97.8(O); Pulse Ox 91% on R/A; Weight 68.04 kg (R); lpr Height 4 ft. 10 in. (147.32 cm) (R); Pain 3/10; 23:00 Body Mass Index 31.35 (68.04 kg, 147.32 cm) lpr MDM: 23:25 Patient medically screened. dc 23:50 Differential diagnosis: arthritis, chronic back pain, sprain, r/o PE. Data reviewed: dc vital signs, nurses notes, lab test result(s), and as a result, I will continue to observe the patient. Counseling: I had a detailed discussion with the patient and/or guardian regarding: the historical points, exam findings, and any diagnostic results supporting the discharge/admit diagnosis, lab results. Medication response: The patient's symptoms have improved, for pain [employer]. 07/23 23:56 Order name: CBC AUTO DIF, MDIF/RMOR IF IND; Complete Time: 00:00 EDMS 07/24 00:00 Interpretation: Normal. dc 07/23 23:59 Order name: BASIC METABOLIC PANEL; Complete Time: 00:00 EDMS 07/24 00:00 Interpretation: Normal. dc 07/23 23:59 Order name: HEPATIC PANEL EDMS 07/24 00:00 Interpretation: Normal. dc 07/23 23:59 Order name: LIPASE EDMS 07/24 00:00 Interpretation: Normal. dc 07/24 00:08 Order name: UA W/ MICRO -CULTURE IF IND; Complete Time: 00:12 EDMS 07/24 00:12 Interpretation: Normal. dc 07/24 00:14 Order name: DDIMER; Complete Time: 00:14 EDMS 07/24 00:14 Interpretation: Abnormal: DDIMER [id number]. dc 07/24 01:03 Order name: CAT SCAN; CHEST ANGIO [id number]; Complete Time: 01:10 EDMS 07/24 01:10 Interpretation: Normal Except: nonspecific. dc 07/23 23:06 Order name: NPO; Complete Time: 23:41 lpr Dispensed Medications: No medications were administered Signatures: Ahmet Hastings MD MD sc Mandy Smith, RN RN lpr Marlyn Quiñones
== END 2016-07-24 01:32 | disposition home or self-care (01) ==
LOC: ER 22:54
DX: M54.89 Other dorsalgia (principal); R19.5 Other fecal abnormalities; R79.1 Abnormal coagulation profile; I10 Essential (primary) hypertension; Z79.899 Other long term (current) drug therapy; Z79.82 Long term (current) use of aspirin; Z85.89 Personal history of malignant neoplasm of other organs and systems; R91.8 Other nonspecific abnormal finding of lung field
CPT/HCPCS: 71275; 80048; 80076; 81001; 83690; 85025; 85379; 99284